=== PATIENT | female | born 1975 | race Caucasian/White ===

== ENCOUNTER 2017-07-31 19:00 | Inpatient (IN) | payer OTHER ==
[2017-07-31] MEDS ORDERED: AMPICILLIN SODIUM 2 GM VIAL ONE (19:34)
[2017-07-31] MEDS ORDERED: AMPICILLIN - 2 GM in SODIUM CHLORIDE 100 ML IVPB ONE (19:44)
[2017-07-31] MEDS ORDERED: ELECTROLYTE-148 SOLN 1,000 ML IV SCH (19:45)
--- NOTE | 2017-07-31 19:57 | HP ---
Past Medical History - Primary Care Physician PCP:: Ally Monson - Admission Chief Complaint: 41 yrs , 36.2/7 weeks by dates & 38.2/7 weeks by sono is admitted in labor. pt came by ambulence. Onset LP since 6.00PM History of Present Illness: PNC at [address] [place] [address] . work UP :05/01/2017 B pos, , Hbsag neg, Rubella pos, Rpr nr, Quantiferon neg HiV nr .PNGT 97, Pap 05/01/17 NILM , gc/ct neg. She had GBS & cultures & cbc hiv drawn today in the clininc. late registrant at 25 weeks sono by [facility] on 05/08/17 , Genetic counselling done, Advance paternal age ( 54yrs), AMA, Materna T-21 done neg . last sono by [facility] on 07/04/17 34.3 wks, [place] 13.3, Efw 2307 gm History Source: Patient, Medical Record Limitations to Obtaining History: No Limitations - Past Medical History MAINTENANCE DIRECTOR: No: Migraine, Seizure Cardiovascular: No: HTN, Murmur Pulmonary: No: Asthma Gastrointestinal: No: Constipation, Gastritis Renal/: No: UTI ...: 6 ...Para: 5 ...Term: 5 ...LMP: 11/19/16 ... Weeks Gestation by Dates: 36.2 ...EDC by Dates: 08/26/17 ...EDC by Sono: 08/12/17 (38.2/7 weeks ) Additional OB History: G1 09/11/1998 7'9" [address] [facility]. G2 2002 6' [address] [facility]. G3 03/26/2007 40 weeks in [facility]). G4 05/20/2008 40 weeks in [facility]). G5 09/18/2015 38.5 weeks, 4'8' [facility] Heme/Onc: No: Anemia Infectious Disease: Yes: STD's (h/o chlamydia treated in 08/2016) Psych: Yes: Bipolar (many years ago, not on any treatment, She has not seen any therapist in many years) Endocrine: No: Diabetes Mellitus, Hypothyroidism - Past Surgical History Past Surgical History: Yes: None Hx Myomectomy: No Hx Transabdominal Cerclage: No - Smoking History Smoking history: Current every day smoker Have you smoked in the past 12 months: Yes Aproximately how many cigarettes per day: 4 - Alcohol/Substance Use Hx Alcohol Use: Yes Number of Drinks Daily: 1 (stopped in 05/2016, 5-6 bears /week or 2 wks ) History of Substance Use: reports: Marijuana Date of Last Use: 06/07/16 (pt stopped smokng crack & marijuana ) Home Medications - Allergies Allergies/Adverse Reactions: Allergies Allergy/AdvReac Type Severity Reaction Status Date / Time No Known Allergies Allergy Verified 07/31/17 19:38 - Home Medications Home Medications: Ambulatory Orders Pnv 29-1 Tablet 1 tab PO DAILY 07/31/17 Tylenol .Regular Strength - 2 tab PO Q6H 07/31/17 Physical Exam - Maternity Vital Signs: Selected Entries 07/31/17 19:24 Weight 156 lb Selected Entries 07/31/17 19:00 Temperature 98.8 F Pulse Rate 72 Blood Pressure 117/78 Constitutional: Yes: Well Nourished, Moderate Distress Eyes: Yes: WNL HENT: Yes: WNL, Normocephalic Neck: Yes: WNL Cardiovascular: Yes: WNL, Regular Rate and Rhythm Lungs: Clear to auscultation Breast(s): Yes: WNL - Abdominal Exam/OB Fundal Height: 38 Number of Fetuses: Single Presentation: Vertex Contractions: Yes Regularity: Regular (3-4 min) Intensity: Moderate Monitor Mode: External Heart Rate (range): 140 Heart Rate Location: [facility] Category: I Accelerations: Uniform Decelerations: None - Vaginal Exam/OB Vaginal Bleediing: Bloody Show Speculum Exam: No Dilatation (cm): 4-5 Effacement (%): 70 Amniotic Membrane Status: Intact Presentation: Vertex/Position (exa at 7.05 PM) Station: -3 - Physical Exam Musculoskeletal: Yes: WNL Extremities: Yes: WNL. No: Calf Tenderness Edema: Yes Edema: LLE: 1+, RLE: 1+ Deep Tendon Reflex Grade: Normal +2 ...Motor Strength: WNL Psychiatric: Yes: WNL, Alert, Oriented - Labs Lab Results: Laboratory Tests 07/31/17 19:35 WBC 15.9 H Hgb 13.6 Hct 39.6 Plt Count 191 Neutrophils % 81.3 Lymphocytes % 14.1 Monocytes % 3.9 Laboratory Tests 07/31/17 07/31/17 07/31/17 21:00 22:00 22:00 Sodium 140 Potassium 3.3 L Chloride 108 H Carbon Dioxide 23 Anion Gap 9 BUN 6 L Creatinine 0.5 L Random Glucose 69 L Calcium 7.7 L Blood Type B POSITIVE Antibody Screen Negative Problem List - Problems (1) AMA (advanced maternal age) multigravida 35+ Code(s): O09.529 - SUPERVISION OF ELDERLY MULTIGRAVIDA, UNSPECIFIED TRIMESTER Qualifiers: Trimester: third trimester Qualified Code(s): O09.523 - Supervision of elderly multigravida, third trimester (2) Grand multipara in labor Code(s): O09.40 - SUPERVISION OF W GRAND MULTIPARITY, UNSP TRIMESTER (3) Grand multipara in labor in third trimester Code(s): O09.43 - SUPRVSN OF W GRAND MULTIPARITY, THIRD TRIMESTER (4) with 38 completed weeks gestation Code(s): Z3A.38 - 38 WEEKS GESTATION OF (5) H/O: substance abuse Code(s): Z87.898 - PERSONAL HISTORY OF OTHER SPECIFIED CONDITIONS (6) Labor established Code(s): NNE2268 - Assessment/Plan 41 yrs , 38.2/7 weeks by sono & 36.2/7 weeks by dates , gbs unknown , in labor Plan : Gbs prophylaxis with Ampicillin stadol 2 mg + phenrgan 25 mg iv stat for labpr analgesia at 8.05 PM anticipate vaginal delivery
[2017-07-31] MEDS ORDERED: BUTORPHANOL TARTRATE 1 MG/ML VIAL ONE ×2 (19:59)
[2017-07-31] MEDS ORDERED: PROMETHAZINE HCL 25 MG/1 ML VIAL ONE (20:00)
[2017-07-31 20:20] LABS: BASO % 0.4 % (0-2.0); EOS % 0.3 % (0-4.5); HEMATOCRIT 39.6 % (32.4-45.2); HEMOGLOBIN 13.6 GM/dL (10.7-15.3); LYMPH % 14.1 % (8-40); MCHC 34.4 g/dl (32.0-36.0); MEAN CELL VOLUME 90.1 fl (80-96); MEAN PLT VOLUME 10.4 fl (7.5-11.1); MONO % 3.9 % (3.8-10.2); NEUT % 81.3 % (42.8-82.8); PLATELET COUNT 191 K/MM3 (134-434); RBC 4.39 M/mm3 (3.60-5.2); WHITE BLOOD COUNT 15.9 K/mm3 (4.0-10.0)
[2017-07-31 20:54] VITALS: BMI 29.5
[2017-07-31] MEDS ORDERED: BUTORPHANOL TARTRATE 1 MG/ML VIAL IVPUSH ONE (21:00)
[2017-07-31] MEDS ORDERED: PROMETHAZINE HCL 25 MG/1 ML VIAL IVPUSH ONE (21:00)
--- NOTE | 2017-07-31 21:00 | PN ---
Progress Note, Labor Vaginal Exam #1 Labor Exam Date: 07/31/17 Labor Exam Time: 20:50 Heart Rate (range): 140 Dilatation: 5-6 Effacement (%): 80 Amniotic Membrane Status: Intact Presentation: Vertex/Position Station: -2 Remarks: Fhr cat-1 Uc 2-4 min mid to moderate Vaginal Exam #2 Labor Exam Date: 08/01/17 Labor Exam Time: 01:30 Heart Rate (range): 150 Dilatation: 10 Effacement (%): 100 Amniotic Membrane Status: Ruptured (AROM , clear large amount. Fully Dilated at 1.20 AM) Presentation: Vertex/Position Station: 0 Remarks: uc q2 min FHR cat-1 Pitocin augmentation started at 1.00AM Selected Entries 08/01/17 00:00 Temperature 98.6 F Pulse Rate 80 Blood Pressure 114/68
[2017-07-31 21:15] LABS: INR 0.93 (0.82-1.09); PROTHROMBIN TIME (PATIENT) 10.5 SEC (9.98-11.88)
[2017-07-31 21:18] LABS: ACTIVATED PTT 24.9 SECONDS (26.9-34.4)
[2017-07-31] MEDS ORDERED: AMPICILLIN SODIUM 1 GM VIAL ONE (22:40)
[2017-07-31 23:25] LABS: ANION GAP 9 (8-16); BLOOD UREA NITROGEN 6 mg/dL (7-18); CALCIUM 7.7 mg/dL (8.5-10.1); CHLORIDE 108 mmol/L (98-107); CO2 23 mmol/L (21-32); CREATININE 0.5 mg/dL (0.55-1.02); GLUCOSE,RANDOM 69 mg/dL (74-106); POTASSIUM 3.3 mmol/L (3.5-5.1); SODIUM 140 mmol/L (136-145)
[2017-07-31] MEDS ORDERED: AMPICILLIN - 1 GM in SODIUM CHLORIDE 100 ML IVPB SCH (23:45)
[2017-08-01] MEDS ORDERED: OXYTOCIN 20 UNITS in 0.9% NS 20 UNIT/1,000 ML INFUS.BAG IV ONE ×2 (00:52→01:26)
[2017-08-01] MEDS: OXYTOCIN 20 UNITS in 0.9% NS 20 UNIT/1,000 ML INFUS.BAG IV SCH ×2 (01:40→05:54)
[2017-08-01] MEDS ORDERED: BENZOCAINE 20% 57 GM BOTTLE TP PRN (02:00)
[2017-08-01] MEDS ORDERED: oxyCODONE HCL 5 MG TABLET PO PRN (02:00)
[2017-08-01] MEDS ORDERED: METHYLERGONOVINE MALEATE 0.2 MG/1 ML AMP IM PRN (02:00)
[2017-08-01] MEDS ORDERED: BENZOCAINE 28 GM HEMORRHOIDAL OINTMENT TP PRN (02:00)
[2017-08-01] MEDS ORDERED: BISACODYL 10 MG SUPP.RECT RC PRN (02:00)
[2017-08-01] MEDS ORDERED: WITCH HAZEL 50% (TUCKS) 40 PAD/JAR PAD TP PRN (02:00)
--- NOTE | 2017-08-01 02:07 | PN ---
Delivery - Delivery Vaginal Delivery: No Problems, Spontaneous (cord aroun the neckx1, untangled before delivery of shoulder) Episiotomy/Laceration: None EBL (cc): 300 Delivery, Single - Stages of Labor Date 1st Stage Initiatied: 07/31/17 Time 1st Stage Initiated: 18:00 Date 2nd Stage Initiated: 08/01/17 Time 2nd Stage Initiated: 01:20 Date of Delivery: 08/01/17 Time of Delivery: 01:32 Date Placenta Delivered: 08/01/17 Time Placenta Delivered: 01:40 Placenta: Yes: Spontaneous, Uterine Exploration - Condition of Power Nut Runner Operator/Watershed Coordinator Present: No Gender: Female Weight: 6 lb 8 oz Position: Left, OA Total Hours ROM (Hrs/Mins): 10 min - 1 Minute Total Score: 9 5 Minutes Total Score: 9 - [place] Feeding Plan Initial Plan: Elected not to breastfeed exclusively throughout hospitalization Remarks - Remarks Remarks: 41 yrs ( AMA), 38.2/7 weeks by late-(27wks ) sono & 36.2/7 by dates in labor GBS unknown, rx Prophylaxiis 2 doses IVAmpicillin given. Stadol + phenrgan for labor analgesia Intrapartum course uneventful
[2017-08-01] MEDS: IBUPROFEN 600 MG TABLET (FP) PO PRN ×4 (03:13→21:39)
[2017-08-01] MEDS: ACETAMINOPHEN 325 MG TABLET (FP) PO PRN ×4 (03:13→21:38)
[2017-08-01 05:12] LABS: COCAINE, UR NEGATIVE ng/ml (CUTOFF=300); METHADONE, UR NEGATIVE ng/ml (CUTOFF=300); OPIATES, URI NEGATIVE ng/ml (CUTOFF=300); PHENCYCLIDINE,URINE NEGATIVE ng/ml (CUTOFF=25); URINE AMPHETAMINES NEGATIVE ng/ml (CUTOFF=500); URINE BARBITURATES NEGATIVE ng/ml (CUTOFF=200); URINE BENZODIAZEPINES NEGATIVE ng/ml (CUTOFF=200)
[2017-08-01] MEDS: FERROUS SO4 325 MG TABLET (FP) PO SCH ×2 (08:01→17:00)
[2017-08-01] MEDS: PRENATAL VITAMINS W/ FOLIC ACID TABLET (FP) PO SCH (09:17)
[2017-08-01] MEDS ORDERED: PNEUMOCOCCAL 23 VACCINE 0.5 ML VIAL IM ONE (10:00)
[2017-08-01] MEDS ORDERED: PNEUMOC 13-VAL CONJ-DIP CRM/PF 0.5 ML DISP.SYRIN IM ONE (10:00)
[2017-08-02] MEDS: IBUPROFEN 600 MG TABLET (FP) PO PRN ×4 (05:46→22:09)
[2017-08-02] MEDS: ACETAMINOPHEN 325 MG TABLET (FP) PO PRN ×4 (05:47→22:09)
[2017-08-02 08:22] LABS: BASO % 0.2 % (0-2.0); EOS % 0.9 % (0-4.5); HEMOGLOBIN 11.6 GM/dL (10.7-15.3); LYMPH % 22.9 % (8-40); MCH 30.3 pg (25.7-33.7); MCHC 33.3 g/dl (32.0-36.0); MEAN CELL VOLUME 91.2 fl (80-96); MEAN PLT VOLUME 9.8 fl (7.5-11.1); MONO % 4.5 % (3.8-10.2); NEUT % 71.5 % (42.8-82.8); PLATELET COUNT 154 K/MM3 (134-434); RBC 3.83 M/mm3 (3.60-5.2); WHITE BLOOD COUNT 11.2 K/mm3 (4.0-10.0)
[2017-08-02] MEDS: FERROUS SO4 325 MG TABLET (FP) PO SCH ×2 (09:13→17:09)
[2017-08-02] MEDS: PRENATAL VITAMINS W/ FOLIC ACID TABLET (FP) PO SCH (09:13)
--- NOTE | 2017-08-02 09:40 | PN ---
Post Progress Note - Subjective Subjective: 41 yo Para 6 status post vaginal delivery, seen and evaluated. Doing well. Post Day: 1 Type of Delivery: Vital Signs: Vital Signs Temperature 99.4 F 08/02/17 08:15 Pulse Rate 75 08/02/17 08:15 Respiratory Rate 20 08/02/17 08:15 Blood Pressure 127/65 08/02/17 08:15 O2 Sat by Pulse Oximetry (%) 97 08/01/17 02:45 Breast Exam: Yes: Soft Uterus: Yes: Fundus Firm Abdomen/GI: Yes: Abdomen soft, Tolerating PO Lochia: Yes: Rubra Lochia, amount: Small Extremities: Yes: Calves non-tender Perineum: Yes: Intact Activity: Ambulating - Labs Labs: CBC WBC 11.2 K/mm3 (4.0-10.0) H 08/02/17 07:30 RBC 3.83 M/mm3 (3.60-5.2) 08/02/17 07:30 Hgb 11.6 GM/dL (10.7-15.3) D 08/02/17 07:30 Hct 35.0 % (32.4-45.2) 08/02/17 07:30 MCV 91.2 fl (80-96) 08/02/17 07:30 MCH 30.3 pg (25.7-33.7) 08/02/17 07:30 MCHC 33.3 g/dl (32.0-36.0) 08/02/17 07:30 RDW 13.0 % (11.6-15.6) 08/02/17 07:30 Plt Count 154 K/MM3 (134-434) 08/02/17 07:30 MPV 9.8 fl (7.5-11.1) 08/02/17 07:30 Neutrophils % 71.5 % (42.8-82.8) 08/02/17 07:30 Lymphocytes % 22.9 % (8-40) D 08/02/17 07:30 Monocytes % 4.5 % (3.8-10.2) 08/02/17 07:30 Eosinophils % 0.9 % (0-4.5) D 08/02/17 07:30 Basophils % 0.2 % (0-2.0) 08/02/17 07:30 Problem List - Problems (1) Status post normal vaginal delivery Code(s): LEE7841 - Assessment/Plan Status post vaginal delivery Stable Continue routine care
--- NOTE | 2017-08-02 15:07 | DS ---
Physical Exam-ELECTROPHYSIOLOGY NURSE PRACTITIONER Vital Signs: Vital Signs Temperature 99.4 F 08/02/17 08:15 Pulse Rate 75 08/02/17 08:15 Respiratory Rate 20 08/02/17 08:15 Blood Pressure 127/65 08/02/17 08:15 O2 Sat by Pulse Oximetry (%) 97 08/01/17 02:45 Constitutional: Yes: Well Nourished Eyes: Yes: WNL HENT: Yes: WNL Neck: Yes: WNL Cardiovascular: Yes: WNL Respiratory: Yes: WNL Gastrointestinal: Yes: WNL Renal/: Yes: WNL External Genitalia: Yes: Normal ....Post : Yes: Uterus firm, Uterus non-tender, Moderate lochia rubra Breast(s): Yes: WNL Musculoskeletal: Yes: WNL Extremities: Yes: WNL. No: Calf Tenderness Edema: Yes Edema: LLE: 1+, RLE: 1+ Integumentary: Yes: WNL, Tattoos Neurological: Yes: WNL ...Motor Strength: WNL Psychiatric: Yes: WNL Labs: CBC, BMP 08/02/17 07:30 07/31/17 22:00 Laboratory Tests 08/01/17 03:00 Opiates Screen Negative Methadone Screen Negative Barbiturate Screen Negative Phencyclidine Screen Negative Ur Amphetamines Screen Negative MDMA (Ecstasy) Screen Negative Benzodiazepines Screen Negative Cocaine Screen Negative U Marijuana (THC) Screen Negative Delivery - Delivery Vaginal Delivery: No Problems, Spontaneous (cord aroun the neckx1, untangled before delivery of shoulder) Type of Anesthesia: None Episiotomy/Laceration: None EBL (cc): 300 Delivery, Single - Stages of Labor Date 1st Stage Initiatied: 07/31/17 Time 1st Stage Initiated: 18:00 Date 2nd Stage Initiated: 08/01/17 Time 2nd Stage Initiated: 01:20 Date of Delivery: 08/01/17 Time of Delivery: 01:32 Time Placenta Delivered: 01:40 Placenta: Yes: Spontaneous, Uterine Exploration - Condition of Infant Cemetery Manager/Body Welder Present: No Infant Gender: Female Weight: 6 lb 8 oz Position: Left, OA Total Hours ROM (Hrs/Mins): 10 min - 1 Minute Total Score: 9 5 Minutes Total Score: 9 - [place] Feeding Plan Initial Plan: Elected not to breastfeed exclusively throughout hospitalization Remarks - Remarks Remarks: 41 yrs ( AMA), 38.2/7 weeks by late-(27wks ) sono & 36.2/7 by dates in labor GBS unknown, rx Prophylaxiis 2 doses IVAmpicillin given. Stadol + phenrgan for labor analgesia Intrapartum course uneventful pp course uneventful discharge 08/03/17 Discharge Summary Reason For Visit: LABOR Current Active Problems AMA (advanced maternal age) multigravida 35+ (Acute) Grand multipara in labor (Acute) Grand multipara in labor in third trimester (Acute) H/O: substance abuse (Acute) Labor established (Acute) with 38 completed weeks gestation (Acute) Status post normal vaginal delivery (Acute) Condition: Stable - Instructions Diet, Activity, Other Instructions: Post Instructions DIET: Continue good diet high in protein, calcium, and iron rich foods. Drink at least eight (8) glasses of water daily in addition to other fluids. ct Regular diet MEDICATIONS: Continue vitamins and iron as previously directed. Motrin and Tylenol may be taken for minor discomfort. ACTIVITY: Mild to moderate exercise may be started in two (2) weeks. Take frequent rest periods. Resume normal activity after six (6) week check up. WOUND CARE OF OPERATIVE SITE: Continue use of perineal bottle until vaginal discharge stops. Keep area clean. Shower daily. Keep abdominal wound dry. Report any drainage or redness to physician. Tub baths, tampons and douches are not permitted for [address] Breast feeding & or Bottle feeding BREAST CARE: (For those that are not breast feeding): If engorgement occurs: Wear tight fitting bra. Take Tylenol or Motrin for pain. Apply cold packs (ice in bags to each breast ) FAMILY PLANNING: There are many control alternatives to pursue and they should be discussed at your first office visit. You may resume sexual activity after your six (6) week check up. (Remember, breast feeding is not a contraceptive) NEXT PHYSICIAN APPOINTMENT: Be certain to call for a six (6) week appointment, unless otherwise directed. Call Clinic or got to Emergency Dept if you have any of the following: Heavy vaginal bleeding Painful urination Leg pain Unusual odor noted to vaginal bleeding High fever Red streaking noted on breast Referrals: Ally Monson MD [Staff Physician] - Disposition: HOME - Home Medications Comprehensive Discharge Medication List: Ambulatory Orders Pnv 29-1 Tablet 1 tab PO DAILY 07/31/17 Tylenol .Regular Strength - 2 tab PO Q6H 07/31/17 Acetaminophen [Tylenol .Regular Strength -] 650 mg PO Q3H PRN tablet 08/02/17 Ferrous Sulfate [Feosol] 325 mg PO BIDWM tab 08/02/17 Ibuprofen [Motrin -] 200 mg PO Q4H PRN tablet 08/02/17 Vitamins (Sjr) - 1 tab PO DAILY tablet 08/02/17
[2017-08-02] MEDS ORDERED: SENNOSIDES/DOCUSATE COMBO (SENNA PLUS) TABLET (UD) PO PRN (22:00)
[2017-08-02 23:32] VITALS: TEMP 98.7
[2017-08-03] MEDS: ACETAMINOPHEN 325 MG TABLET (FP) PO PRN ×2 (06:46→13:05)
[2017-08-03] MEDS: IBUPROFEN 600 MG TABLET (FP) PO PRN ×2 (06:46→13:04)
--- NOTE | 2017-08-03 07:48 | PN ---
Progress Note (short form) - Note Progress Note: ppd 2 doing well, no c/o CBC, BMP 08/02/17 07:30 07/31/17 22:00 Last Vital Signs Temp Pulse Resp BP Pulse Ox 98.7 F 73 18 103/59 97 08/02/17 22:00 08/02/17 22:00 08/02/17 22:00 08/02/17 22:00 08/01/17 02:45 abdomen soft, uterus firm, non tender lochia mild no calf tenderness plan d/c home, rtc 4 weeks cont pnv
[2017-08-03] MEDS: FERROUS SO4 325 MG TABLET (FP) PO SCH (09:27)
[2017-08-03] MEDS: PRENATAL VITAMINS W/ FOLIC ACID TABLET (FP) PO SCH (09:27)
[2017-08-03 10:28] VITALS: BP 131/65; PULSE 71
== END 2017-08-03 13:30 | disposition home or self-care (01) | DRG 560 ==
LOC: JLDR 19:00 → J3W 08-01 03:23
PROVIDERS: ADMIT Obstetrics & Gynecology; ATTEND Obstetrics & Gynecology
PROC: 10E0XZZ Delivery of Products of Conception, External Approach (ICD-10-PCS; principal; 2017-08-01)
DX: O69.81X0 Labor and delivery complicated by cord around neck, without compression, not applicable or unspecified (principal); O99.344 Other mental disorders complicating childbirth; O99.333 Smoking (tobacco) complicating pregnancy, third trimester; F17.210 Nicotine dependence, cigarettes, uncomplicated; F31.9 Bipolar disorder, unspecified; Z3A.39 39 weeks gestation of pregnancy; Z37.0 Single live birth; Z3A.38 38 weeks gestation of pregnancy
CPT/HCPCS: 36415; 59409; 80048; 80307; 85025; 85610; 85730; 86593; 86850; 86900; 86901; 90732; G0009

== ENCOUNTER 2019-06-21 19:38 | Emergency (ER) | payer OTHER ==
[2019-06-21 19:46] VITALS: TEMP 98; BMI 30.9
--- NOTE | 2019-06-21 20:17 | PDOC ---
History of Present Illness - General Chief Complaint: Vaginal Bleeding Stated Complaint: 8 WKS /BLEEDING Time Seen by Provider: 06/21/19 20:15 History Source: Patient Exam Limitations: No Limitations - History of Present Illness Initial Comments: 06/21/19 20:15 AREA FIELD PERSON: Dr. Ed Narayanan HPI: 43yo F PMH bipolar disorder, seen at [facility] 06/16 (TVUS demonstrating IUP with no heartbeat visualized) with 8 days of vaginal bleeding, worsening today with 3-4 pad changes today and passage of dark blood this AM. Patient endorses a fever at noon today, resolved with Tylenol. Nausea and vomiting for the past week, lower abdominal discomfort with contractions since 06/[address] [place] [address]. Beta HCG was [address] on 06/16. Denies CP, SOB, chills, sweats. Endorses IUD removal 04/02, LMP 04/18, and approximate 8 weeks gestational age. NKDA Past History - Travel Traveled outside of the country in the last 30 days: No Close contact w/someone who was outside of country & ill: No - Past Medical History Allergies/Adverse Reactions: Allergies Allergy/AdvReac Type Severity Reaction Status Date / Time No Known Allergies Allergy Verified 07/31/17 19:38 Home Medications: Ambulatory Orders Escitalopram Oxalate [Lexapro -] 20 mg PO DAILY 06/21/19 Ibuprofen [Motrin -] 600 mg PO TID #30 tablet 06/21/19 Lamotrigine 200 mg PO DAILY 06/21/19 Asthma: No Cancer: No Cardiac Disorders: No COPD: No Diabetes: No HTN: No Psychiatric Problems: Yes (BIPOLAR) Seizures: No Thyroid Disease: No - Psycho Social/Smoking Cessation Hx Smoking History: Current every day smoker Have you smoked in the past 12 months: Yes Number of Cigarettes Smoked Daily: 2 Information on smoking cessation initiated: No Hx Alcohol Use: No Drug/Substance Use Hx: No Hx Substance Use Treatment: No Review of Systems - Review of Systems Able to Perform ROS?: Yes Is the patient limited Romanian proficient: Yes Constitutional: Yes: Fever (today at noon, resolved with tylenol). No: Chills HEENTM: No: Recent change in vision, Nose Congestion, Throat Pain Respiratory: No: Cough, Shortness of Breath Cardiac (ROS): No: Chest Pain, Edema, Irregular Heart Rate, Chest Tightness ABD/GI: Yes: Nausea, Vomiting, Abdominal cramping. No: Constipated, Diarrhea, Poor Appetite, Poor Fluid Intake : No: Burning, Dysuria, Discharge, Frequency Musculoskeletal: No: Muscle Pain, Muscle Weakness Integumentary: No: Erythema, Flushing, Lumps, Pallor, Rash Neurological: No: Headache, Numbness, Tingling, Weakness Psychiatric: Yes: Mood Swings, Other (Bipolar Disorder). No: Emotional Problems Endocrine: No: Increased Thirst, Increased Urine Hematologic/Lymphatic: No: Anemia, Blood Clots, Easy Bleeding All Other Systems: Reviewed and Negative *Physical Exam - Vital Signs Last Vital Signs Temp Pulse Resp BP Pulse Ox 98 F 86 19 104/64 98 06/21/19 19:40 06/21/19 19:40 06/21/19 19:40 06/21/19 19:40 06/21/19 19:40 - Physical Exam 06/21/19 20:16 Vitals reviewed, AFVSS WDWN woman, appears stated age, no acute distress, in hospital gown MMM, EOMI, normal morphologies, trachea midline RRR, nl s1s2, no murmur appreciated CTABL, normal WOB, no wheezes / rales / rhonchi Soft, diffusely tender lower abdomen, non-distended, non-gravid on exam WWP, no clubbing / cyanosis / edema 2+ radial and PT pulses CN grossly intact, normal gait, MAEE SSE: copious dark blood in vaginal vault with apparent POC present along with clots, no lacerations apparent Moments after SSE patient passed likely gestational sac, specimen collected for pathology evaluation ED Treatment Course - LABORATORY CBC & Chemistry Diagram: 06/21/19 21:30 06/21/19 21:30 Medical Decision Making - Medical Decision Making 06/21/19 20:16 43yo F PMH bipolar disorder, seen at [facility] 06/16 with TVUS demonstrating no heartbeat with 8 days of vaginal bleeding, worsening today with 3-4 pad changes today and passage of dark blood this AM. Patient passes likely gestational sac during exam. Presentation c/w spontaneous . - T&S, Beta HCG Quant, CBC, CMP, UA, UCx - TVUS - Reglan - POC Specimen sent to pathology 06/21/19 21:00 - IV placed in right AC by me 06/21/19 22:30 - CBC, CMP unremarkable - Beta Quant Pending - TVUS pending 06/21/19 22:40 - Beta HCG [id number] 06/21/19 23:51 - TVUS without IUP, together with HCG c/w completed miscarriage - Follow-up already arranged with AREA FIELD PERSON for 11AM 06/13/19 - Patient provided with copy of labs and return precautions Dispo: Home Discharge - Discharge Information Problems reviewed: Yes Clinical Impression/Diagnosis: Spontaneous Condition: Improved Disposition: HOME - Admission No - Additional Discharge Information Prescriptions: Ibuprofen [Motrin -] 600 mg PO TID #30 tablet - Follow up/Referral Referrals: Genevieve Colon FNP [Primary Care Provider] - Dustin Narayanan MD [Staff Physician] - - Patient Discharge Instructions Patient Printed Discharge Instructions: DI for Miscarriage Additional Instructions: Please follow up with you AREA FIELD PERSON at your scheduled appointment 06/23 at 11AM. Please take copies of your laboratory and ultrasounds reports with you to this visit. A prescription for Motrin has been sent to your pharmacy, please pick this up and take it and/or Tylenol as directed. Return to the ED for any new or concerning symptoms. These include but are not limited to: Bleeding that soaks 2 pads per hour for more than 2 hours, pain that is not responsive to pain medication, anything else that you find concerning or alarming. Do not hesitate to come back, we are always here to help. I wish you and yours the best during this difficult time. Feel better soon. - Post Discharge Activity
[2019-06-21] MEDS ORDERED: METOCLOPRAMIDE HCL INJECTION 10 MG/2 ML VIAL IVPUSH ONE (20:41)
[2019-06-21] MEDS ORDERED: METOCLOPRAMIDE HCL INJECTION 10 MG/2 ML VIAL ONE (21:32)
[2019-06-21 21:37] LABS: BASO % 1.4 % (0-2.0); EOS % 1.2 % (0-4.5); HEMATOCRIT 44.7 % (32.4-45.2); HEMOGLOBIN 14.9 GM/dL (10.7-15.3); LYMPH % 25.1 % (8-40); MCH 30.6 pg (25.7-33.7); MCHC 33.4 g/dl (32.0-36.0); MEAN CELL VOLUME 91.5 fl (80-96); MONO % 4.6 % (3.8-10.2); NEUT % 67.7 % (42.8-82.8); PLATELET COUNT 275 K/MM3 (134-434); RBC 4.88 M/mm3 (3.60-5.2); RDW 14.1 % (11.6-15.6); WHITE BLOOD COUNT 8.3 K/mm3 (4.0-10.0)
[2019-06-21 22:19] LABS: ALBUMIN 4.1 g/dl (3.4-5.0); BILIRUBIN,TOTAL 0.3 mg/dL (0.2-1); BLOOD UREA NITROGEN 10.9 mg/dL (7-18); CALCIUM 9.3 mg/dL (8.5-10.1); CREATININE 0.9 mg/dL (0.55-1.3); POTASSIUM 4.4 mmol/L (3.5-5.1); TOT PROT 7.4 g/dl (6.4-8.2)
--- NOTE | 2019-06-21 22:29 | PDOC ---
Documentation entered by Jake Del Toro SCRIBE, acting as scribe for Annetta Monge MD. Annetta Monge MD: This documentation has been prepared by the Alverto chow Nirvannie, SCRIBE, under my direction and personally reviewed by me in its entirety. I confirm that the documentation accurately reflects all work, treatment, procedures, and medical decision making performed by me. Attending Attestation - Resident Resident Name: Dex Barney - ED Attending Attestation I have performed the following: I have examined & evaluated the patient, The case was reviewed & discussed with the resident, I agree w/resident's findings & plan, Exceptions are as noted - HPI HPI: 06/21/19 22:04 The patient is a 43 year old 8 weeks female , with a significant past medical history of bipolar disorder, who presents to the emergency department with 8 days of persistent vaginal bleeding. As per patient, she had a confirmed IUP without heartbeat on TVUS at [facility] 06/16. Patient notes following up with her STUDIO ASSOCIATE 06/19 at which time she had blood work done. Patient notes associated 1 week of nausea with emesis, lower abdominal pain, and a fever today which was resolved with Tylenol. She denies recent dysuria, frequency, urgency or hematuria. She denies recent chest pain or shortness of breath. Allergies: NKA STUDIO ASSOCIATE: Dr. Narayanan LMP: 04/18 Beta HCG 06/16: [id number] - Physicial Exam PE: 06/21/19 22:28 GENERAL: The patient is in no acute distress. ENT: Ears normal, nares patent, oropharynx clear without exudates. Moist mucous membranes. NECK: Normal range of motion, supple LUNGS: Breath sounds equal, clear to auscultation bilaterally. No wheezes, and no crackles. HEART:Regular rate and rhythm, normal S1 and S2 without murmur, rub or gallop. ABDOMEN: Soft, nontender PELVIC: per Dr Barney EXTREMITIES: Normal range of motion, no edema. NEUROLOGICAL: Cranial nerves II through XII grossly intact. Normal speech. No focal neurological deficits. SKIN: Warm, Dry, normal turgor, no rashes or lesions noted. - Medical Decision Making 06/21/19 22:28 Laboratory Tests 06/21/19 06/21/1906/21/19 21:30 21:30 21:30 Hgb 14.9 Hct 44.7 D BUN 10.9 Creatinine 0.9 Blood Type B POSITIVE 06/21/19 22:39 Laboratory Tests 06/21/19 21:30 Beta HCG, Quant 4206.2 06/21/19 23:29 Referring Physician: KATRINA BADILLO Patient Name: TALI MARTINEZ THIS IS A PRELIMINARY REPORT FROM IMAGING DRIVER/MERCHANDISER DATE OF SERVICE: 2019-06-21 21:44:33 IMAGES: 42 EXAM: TRANSVAGINAL US PREG HISTORY vaginal bleeding in early COMPARISON: None. FINDINGS: The endometrium is thickened up to 1.3 cm. It is somewhat heterogeneous. However no pole is identified. Follow-up recommended to distinguish between failed gestation and early normal intrauterine gestation as well as less common/left likely possibility of ectopic gestation. There is a 1 cm right ovarian cyst. The remainder of the right ovary is normal with positive Doppler blood flow. Left ovary could not be visualized due to overlying bowel gas. Expelled contents sent to pathology department Pt bleeding is less She already has an appointment with natural sciences professor on Jun 23 Return to the ER for any other concerns or complaints Clinical impression: complete AB, initial presentation
[2019-06-21 23:48] VITALS: BP 108/66; PULSE 65
--- NOTE | 2019-06-26 11:10 | PATH ---
Surgical Pathology Report Patient Name: CHETNA WALTON [facility]. Rec. #: [id number] /Age/Gender: 1975 (Age: 43) / F Account: [id number] Location: EMERGENCY ROOM Taken: 06/23/2019 Received: 06/23/2019 Reported: 06/26/2019 Physicians: Annetta Monge M.D. Specimen(s) Received PRODUCTS OF CONCEPTION Clinical History , approximately 8 weeks , 8 days of vaginal bleeding and abdominal pain, no heart beat on 06/16 transvaginal ultrasound Final Diagnosis PRODUCTS OF CONCEPTION: CHORIONIC VILLI WITH HYDROPIC CHANGE, CONSISTENT WITH PRODUCTS OF CONCEPTION. Electronically Signed Serene Otero M.D. Gross Description Received in formalin labeled "products of conception," is a 5.5 x 3.0 x 0.8 cm aggregate of ellis-brown soft tissue fragments admixed with blood clot. Villous tissue is identified. No definitive somatic tissue is identified. A customer service representative portion is submitted in one cassette. /06/23/2019 [facility]06/23/2019
== END 2019-06-22 00:46 | disposition home or self-care (01) ==
LOC: JER 19:38
PROC: 3E033GC Introduction of Other Therapeutic Substance into Peripheral Vein, Percutaneous Approach (ICD-10-PCS; principal; 2019-06-21)
DX: O26.891 Other specified pregnancy related conditions, first trimester (principal); O03.9 Complete or unspecified spontaneous abortion without complication; Z3A.08 8 weeks gestation of pregnancy; Z86.59 Personal history of other mental and behavioral disorders
CPT/HCPCS: 36415; 76817-TC; 80053; 84702; 85025; 86850; 86900; 86901; 96374; 99284-25